=== PATIENT | female | born 1950 | race Caucasian/White ===

== ENCOUNTER 2018-06-03 05:11 | Emergency (ER) | payer MEDICARE ==
[~2018-06-03] VITALS: Ht 165.1 cm; Wt 81.7 kg
[~2018-06-03 05:11] MED LIST: LANTUS100 UNIT/M SUBQ; LEVOTHYROXIN0.025 MG PO; LIPITOR10 MG PO; LOVASTATIN 20 M20 MG PO; SINGULAIR 10 MG10 M1 PO; ZOLOFT25 MG PO
[2018-06-03] MEDS ORDERED: NAVANE (05:34)
[2018-06-03 05:39] LABS: ABSOLUTE EOSINOPHILS 0.3 thou/uL (0.0-0.7); ABSOLUTE LYMPHOCYTES 2.1 thou/uL (0.8-5.3); ABSOLUTE MONOCYTES 0.5 thou/uL (0.0-1.2); ABSOLUTE NEUTROPHILS 5.8 thou/uL (1.6-8.1); BASOPHILS 0.5 %; EOSINOPHILS 3.2 %; HEMOGLOBIN 14.3 gm/dL (12.0-15.0); LYMPHOCYTES 23.7 %; MCH 28.6 pg (26.0-34.0); MCHC 34.9 g/dL (28.0-37.0); MONOCYTES 5.8 %; NUCLEATED RBCS 0 /100WBC; PLATELET COUNT* 196 thou/uL (150-400); POLYS 66.8 %; RDW-CV 13.2 % (10.5-14.5); WBC 8.8 thou/uL (4.0-11.0)
[2018-06-03 05:56] LABS: ANION GAP 8 mmol/L (7-16); APTT 24.6 Seconds (25.0-31.3); BUN 13 mg/dL (7-18); CALCIUM 8.8 mg/dL (8.5-10.1); CHLORIDE 102 mmol/L (98-107); CO2 29 mmol/L (21-32); CREATININE 0.7 mg/dL (0.6-1.3); GLUCOSE 138 mg/dL (70-99); INR 0.9; POTASSIUM 3.5 mmol/L (3.5-5.1); PROTIME 9.6 Seconds (9.20-11.50); SODIUM 139 mmol/L (136-145)
[2018-06-03 06:04] LABS: ALBUMIN 3.6 g/dL (3.4-5.0); ALKALINE PHOSPHATASE 110 U/L (46-116); LIPASE 287 U/L (73-393); NT-PRO BRAIN NAT PEPTIDE 35 pg/mL (<300); SGOT 12 U/L (15-37); SGPT 27 U/L (30-65); TOTAL BILIRUBIN 0.3 mg/dL (<0.1-1.0); TOTAL PROTEIN 6.9 g/dL (6.4-8.2); TROPONIN-I LEVEL <0.06 ng/mL (<0.06)
[2018-06-03] MEDS ORDERED: CARAFATE 1 GM TA1 GM PO (06:15)
[2018-06-03 06:47] VITALS: BP 168/54
--- NOTE | 2018-06-03 17:22 | EKG ---
[place] [address] ELECTROCARDIOGRAM REPORT Name: LUBABAILEYCESAR SILVA [id number] Admission: 06/03/18 Attend Phys: Discharge: 06/03/18 Date of : 48 Report #: [id number] THIS REPORT FOR: //name// [facility] ED Test Date: 2018-06-03 Test Time: 05:17:19 Pat Name: CESAR GUZMÁN Department: Room: Gender: F Branch Account Executive: UNKNOWN : 1950 Requested By: Shavon Hamlin Order Number: [id number] MD: Mirza Olvera Measurements Intervals [place] Rate: 92 P: 81 PA: 157 QRS: 47 QRSD: 96 T: 83 QT: 365 QTc: 452 Interpretive Statements Sinus rhythm Biatrial enlargement Anteroseptal infarct, age indeterminate possible Baseline wander in lead(s) II,aVR,V6 Compared to ECG 06/07/2007 03:17:05 No significant changes Electronically Signed On 06-03-2018 17:22:40 CDT by Mirza Olvera [email or web address] <ELECTRONICALLY SIGNED> By: Mirza Olvera MD, [facility] 06/03/18 1722 0517 0517 Mirza Olvera MD, [facility] /EPI
== END 2018-06-03 06:49 | disposition home or self-care (01) ==
LOC: M.ERS 05:11
PROVIDERS: Personal Emergency Response Attendant
DX: R12 Heartburn (principal); E11.9 Type 2 diabetes mellitus without complications; F17.210 Nicotine dependence, cigarettes, uncomplicated; Z90.49 Acquired absence of other specified parts of digestive tract; Z79.4 Long term (current) use of insulin; Z98.890 Other specified postprocedural states